=== PATIENT | female | born 1990 | race Caucasian/White ===

== ENCOUNTER 2017-09-19 15:35 | Emergency (ER) | payer OTHER ==
[~2017-09-19] VITALS: Ht 170.2 cm; Wt 68.5 kg
[2017-09-19 15:40] VITALS: BP 132/82
[2017-09-19] MEDS ORDERED: NACL 0.9% 1,000 ML IV ONE (15:55)
[2017-09-19] MEDS ORDERED: fentaNYL 0.05 MG/ML VIAL IVP ONE (15:55)
--- NOTE | 2017-09-19 16:20 | NUR ---
27f bib friend with c/o bl posterior neck pain x 2 days progressively getting worse. Pt denies any injury. Pt also report of right arm pain x 1 month. Pt denies any any visual changes, fevers, or n/v. Pain worse upon rom. Pt is aox4 with steady gait. GCS=15. RR are even and unlabored. No acute distress at this time. Will continue to monitor.
--- NOTE | 2017-09-19 16:32 | NUR ---
pt to ct via [facility] accompanied by system support technician
--- NOTE | 2017-09-19 16:42 | NUR ---
pt returned from ct via gurney accompanied by diesel truck technician. returned to rm 11 without incident.
[2017-09-19 18:04] VITALS: BP 114/63
--- NOTE | 2017-09-19 18:08 | NUR ---
Patient discharged with v/s stable. Written and verbal after care instructions given and explained. Patient alert, oriented and verbalized understanding of instructions. Ambulatory with steady gait. All questions addressed prior to discharge. ID band removed. Patient advised to follow up with PMD. Rx of motrin/robaxin/tramadol given. Patient educated on indication of medication including possible reaction and side effects. Opportunity to ask questions provided and answered.
== END 2017-09-19 18:08 | disposition home or self-care (01) ==
LOC: MED 15:35
DX: S16.1XXA Strain of muscle, fascia and tendon at neck level, initial encounter (principal); R20.2 Paresthesia of skin; X58.XXXA Exposure to other specified factors, initial encounter; Y93.89 Activity, other specified; Y92.89 Other specified places as the place of occurrence of the external cause; Y99.8 Other external cause status
CPT/HCPCS: 72125; 81025; 96374; 99284; J3010; 96361